=== PATIENT | female | born 1990 | race Caucasian/White ===

== ENCOUNTER 2021-03-31 13:28 | Emergency (ER) | payer BC, SELFPAY ==
[2021-03-31 13:43] VITALS: BP 115/74; PULSE 104; RESP 18; TEMP 37; O2SAT 99
--- NOTE | 2021-03-31 13:59 | ED.URI ---
HPI - URI/Sore Throat General Chief Complaint: Upper Respiratory Infection Stated Complaint: sore throat/chest congestion Source: patient and RN notes reviewed Mode of arrival: ambulatory History of Present Illness HPI Narrative: This is a 30-year-old female who presented to urgent care with complaints of a runny nose, congestion, sore throat, shortness of breath and productive cough with white mucus. According to patient she developed symptoms yesterday and took Tylenol at home for her symptoms she did recently get tested for Covid on Sunday which was negative. She has a history of asthma as well as bronchitis. Patient has a 5-month-old baby that she is breast-feeding at home and was concerned. She has no other associated symptoms. The patient denies , CP, palpitation, extremity numbness, lightheadedness, dizziness, constipation, diarrhea, chills, or fever. Strep Negative Called to patient's pharmacist, according to pharmacist noted the medication prescribed will affect her infant while breast-feeding. MD elicited complaint: cough, sore throat, rhinorrhea and nasal congestion Related Data Home Medications Medication Instructions Recorded Confirmed norethindrone (contraceptive) 0.35 mg PO DAILY 03/31/21 03/31/21 Allergies Allergy/AdvReac Type Severity Reaction Status Date / Time No Known Allergies Allergy Verified 03/31/21 13:46 Review of Systems Review of Systems: A 14 organ system Review of Systems was performed and pertinent positives included in the HPI, otherwise remaining ROS is negative. [facility] Family History Family History (Updated 03/31/21 @ 14:03 by ISABELA Blanco) Other Family history non-contributory Exam Narrative: GENERAL: This is a well-nourished, well-developed patient, in no apparent distress. HEAD: normocephalic, atraumatic. EYES: PERRL. Sclera clear/white. Vision is grossly intact. EARS: External ears normal, auditory canals clear and without drainage, TMs normal without perforation. Hearing grossly intact. NOSE: External nose normal with no obvious nasal discharge, nares without redness, no rhinorrhea. THROAT: Mucous membranes moist, posterior pharynx edematous with erythema NECK: Neck supple, non-tender without lymphadenopathy, masses or thyromegaly. CARDIOVASCULAR: Regular rate and rhythm without murmurs, gallops, or rubs. RESPIRATORY: Clear to auscultation. Breath sounds equal bilaterally. No wheezes, rales, or rhonchi. GASTROINTESTINAL: Abdomen soft, non-tender, nondistended. Bowel sounds are active. No hepato-splenomegaly, or palpable masses. No guarding. SKIN: warm, intact with no suspicious lesions or rash, good texture and turgor. NEURO: awake, alert, and oriented to person, place and time. There were no obvious focal neurologic abnormalities. Steady gait EXTREMITIES: Normal range of motion. No edema. No calf tenderness. Negative Homans sign bilaterally. BACK: Nontender without deformity or crepitance. No flank tenderness. Course Course Emergency Course: Patient diagnosed with viral illness . Her symptoms will be treated she was discharged with Tessalon Perles, albuterol, guaifenesin and Claritin Vital Signs Vital signs: Vital Signs Temperature 98.6 F 03/31/21 13:43 Pulse Rate 104 H 03/31/21 13:43 Respiratory Rate 18 03/31/21 13:43 Blood Pressure 115/74 03/31/21 13:43 Pulse Oximetry 99 03/31/21 13:43 Temperature 98.6 F 03/31/21 13:43 Pulse Rate 104 H 03/31/21 13:43 Respiratory Rate 18 03/31/21 13:43 Blood Pressure 115/74 03/31/21 13:43 Pulse Oximetry 99 03/31/21 13:43 MDM - URI/Sore Throat Differential Diagnosis Differential diagnosis: Likely upper respiratory infection, viral infection, influenza and pharyngitis Lab Data Labs: Strep Screen Presumptive Negative *(Reference Range: Negative)* Discharge Plan Discharge Clinical Impression: Upper respiratory infection Q
== END 2021-03-31 14:25 | disposition home or self-care (01) ==
PROVIDERS: Emergency Provider Nurse Practitioner
DX: J06.9 Acute upper respiratory infection, unspecified (principal); J45.909 Unspecified asthma, uncomplicated
CPT/HCPCS: 87081; 87880; 99213; G0463